=== PATIENT | female | born 1990 | race African-American/Black ===

== ENCOUNTER 2016-09-06 04:16 | Emergency (ER) | payer OTHER ==
[~2016-09-06] VITALS: Ht 172.7 cm; Wt 56.7 kg
[~2016-09-06 04:16] MED LIST: ALLEGRA-D 12 H1 EACH PO; BACTRIM DS TAB1 EACH PO; BIRTH CONTROL; CIPRO; CIPROFLOXACIN500 M1 PO; CYCLOBENZAPRINE; DEPO-PROVERA; FLAGYL500 MG PO; GENTAK5 ML OP; IRON325 PO; LORAZEPAM 1 MG T1 M1 PO; MIRALAX255 GM PO; MONONESSA1 EACH PO; NAPHCON-A EYE D15 ML OP; NOHOMEMEDICATIONS; NORCO 5-325 TA1 EACH PO; PENICILLIN VK500 M1 PO; PHENERGAN 25 MG25 M1 PO; PRENATAL; PRENATAL PO; PYRIDIUM200 MG PO; SEROQUEL 50 MG50 MG PO; SEROQUEL XR 30300 M1 PO; TESSALON PERLE100 MG PO; ULTRAM 50MG TAB50 MG PO; VENTOLIN HFA 1818 GM INH; VERAPAMIL ER180 M1 PO; VISINE15 ML OP; ZANTAC 150MG T150 M1 PO; ZOFRAN ODT4 MG PO; ZPAK PO
[2016-09-06 04:18] VITALS: BP 128/82
[2016-09-06 04:39] LABS: URINE BILIRUBIN NEGATIVE (Negative); URINE BLOOD NEGATIVE (Negative); URINE COLOR YELLOW; URINE GLUCOSE-RANDOM* NEGATIVE (Negative); URINE KETONES NEGATIVE (Negative); URINE LEUKOCYTES-REFLEX 1+ (Negative); URINE PROTEIN (DIPSTICK) NEGATIVE (Negative); URINE SPECIFIC GRAVITY <= 1.005 (1.003-1.035); URINE UROBILINOGEN 0.2 E.U./dl (0.2-1.0)
[2016-09-06 04:59] LABS: SQUAMOUS 4-10 Moderate /LPF (0-3)
[2016-09-06 05:00] LABS: CASTS None Seen /LPF (None Seen); CRYSTALS None Seen /LPF (None Seen); URINE RBC 0-2 Rare /HPF (0-2); URINE WBC-REFLEX 0-5 Rare /HPF (0-5)
[2016-09-06] MEDS ORDERED: CYCLOBENZAPRINE5 MG PO (05:11)
[2016-09-06] MEDS ORDERED: HYDROCODONE-AP1 EAC6 PO (05:11)
[2016-10-15] MEDS ORDERED: AMOXICILLIN 50500 M1 PO (03:05)
== END 2016-09-06 05:15 | disposition home or self-care (01) ==
LOC: ER 04:16
PROVIDERS: Emergency Medicine
DX: S29.012A Strain of muscle and tendon of back wall of thorax, initial encounter (principal); F17.210 Nicotine dependence, cigarettes, uncomplicated; F41.9 Anxiety disorder, unspecified; Z88.5 Allergy status to narcotic agent; Z88.6 Allergy status to analgesic agent; X58.XXXA Exposure to other specified factors, initial encounter; Y93.89 Activity, other specified; Y92.89 Other specified places as the place of occurrence of the external cause; Y99.9 Unspecified external cause status

== ENCOUNTER 2016-09-11 19:42 | Emergency (ER) | payer OTHER ==
[~2016-09-11] VITALS: Ht 170.2 cm; Wt 57.1 kg
[~2016-09-11 19:42] MED LIST changes: +CYCLOBENZAPRINE5 MG PO; +HYDROCODONE-AP1 EAC6 PO
[2016-09-11 20:16] LABS: URINE BILIRUBIN NEGATIVE (Negative); URINE BLOOD NEGATIVE (Negative); URINE COLOR YELLOW; URINE GLUCOSE-RANDOM* NEGATIVE (Negative); URINE KETONES NEGATIVE (Negative); URINE LEUKOCYTES-REFLEX NEGATIVE (Negative); URINE PROTEIN (DIPSTICK) TRACE (Negative); URINE SPECIFIC GRAVITY 1.025 (1.003-1.035)
[2016-09-11 20:37] LABS: ABSOLUTE NEUTROPHILS 4.2 thou/uL (1.4-8.2); BASOPHILS 0.6 % (0.0-2.0); EOSINOPHILS 0.4 % (0.0-3.0); HEMATOCRIT 35.7 % (37.0-47.0); HEMOGLOBIN 11.9 gm/dL (12.0-15.0); LYMPHOCYTES 39.9 % (24.0-44.0); MCH 34.8 pg (26.0-34.0); MCHC 33.2 % (28.0-37.0); MCV 104.8 fL (80.0-100.0); MONOCYTES 9.2 % (1.0-8.0); PLATELET COUNT 255 thou/uL (150-400); POLYS 49.9 % (36.0-66.0); RBC 3.41 mil/uL (4.20-5.00); RDW 13.6 % (10.5-14.5); WBC 8.4 thou/uL (4.0-11.0)
[2016-09-11 20:39] LABS: MANUAL DIFF NO
[2016-09-11 20:43] LABS: CALCIUM 8.6 mg/dL (8.5-10.1); POTASSIUM 3.8 mmol/L (3.5-5.1)
[2016-09-11 20:49] LABS: ALBUMIN 3.7 g/dL (3.4-5.0); TOTAL BILIRUBIN 0.3 mg/dL (<0.1-1.0); TOTAL PROTEIN 7.4 g/dL (6.4-8.2)
[2016-09-11] MEDS ORDERED: FLAGYL500 MG PO (21:35)
[2016-09-11] MEDS ORDERED: DOXYCYCLINE 10100 MG PO (21:35)
[2016-09-11] MEDS ORDERED: ACETAMINOPHEN-1 EAC1 PO (21:35)
[2016-09-11 21:42] VITALS: BP 109/37
[2016-09-14 14:12] LABS: CHLAMYDIA TRACHOMATIS-PCR Negative (Negative); NEISSERIA GONORRHEA-PCR Negative (Negative)
[2016-10-15] MEDS ORDERED: AMOXICILLIN 50500 M1 PO (03:05)
== END 2016-09-11 21:48 | disposition home or self-care (01) ==
LOC: ER 19:42
PROVIDERS: Emergency Medicine
DX: N73.8 Other specified female pelvic inflammatory diseases (principal); N76.0 Acute vaginitis; D53.9 Nutritional anemia, unspecified; F17.210 Nicotine dependence, cigarettes, uncomplicated; F41.9 Anxiety disorder, unspecified; Z88.6 Allergy status to analgesic agent

== ENCOUNTER 2016-12-31 01:58 | Emergency (ER) | payer OTHER ==
[~2016-12-31] VITALS: Ht 170.2 cm; Wt 54.4 kg
[~2016-12-31 01:58] MED LIST changes: +ACETAMINOPHEN-1 EAC1 PO; +AMOXICILLIN 50500 M1 PO; +DOXYCYCLINE 10100 MG PO
[2016-12-31 02:01] VITALS: BP 130/78
[2016-12-31] MEDS ORDERED: AMOXICILLIN875 MG PO (02:56)
[2016-12-31] MEDS ORDERED: NORCO 5-325 TA1 EACH PO (02:56)
== END 2016-12-31 03:00 | disposition home or self-care (01) ==
LOC: ER 01:58
DX: J02.9 Acute pharyngitis, unspecified (principal); F41.9 Anxiety disorder, unspecified; Z88.6 Allergy status to analgesic agent; Z88.8 Allergy status to other drugs, medicaments and biological substances; F17.210 Nicotine dependence, cigarettes, uncomplicated; F10.99 Alcohol use, unspecified with unspecified alcohol-induced disorder

== ENCOUNTER 2017-01-20 01:02 | Emergency (ER) | payer OTHER ==
[~2017-01-20] VITALS: Ht 170.2 cm; Wt 53.5 kg
[~2017-01-20 01:02] MED LIST changes: +AMOXICILLIN875 MG PO
[2017-01-20 01:17] LABS: URINE BILIRUBIN NEGATIVE (Negative); URINE BLOOD 3+ (Negative); URINE COLOR YELLOW; URINE GLUCOSE-RANDOM* NEGATIVE (Negative); URINE KETONES NEGATIVE (Negative); URINE NITRITE POSITIVE (Negative); URINE PROTEIN (DIPSTICK) 2+ (Negative); URINE UROBILINOGEN 0.2 E.U./dl (0.2-1.0)
[2017-01-20 01:20] VITALS: BP 121/68
[2017-01-20] MEDS ORDERED: MACROBID 100 M100 M1 PO (01:26)
[2017-01-20] MEDS ORDERED: PYRIDIUM200 MG PO (01:26)
[2017-01-20 01:41] LABS: CASTS None Seen /LPF (None Seen); CRYSTALS None Seen /LPF (None Seen); SQUAMOUS 0-3 Few /LPF (0-3); URINE WBC >25 Many /HPF (0-5)
== END 2017-01-20 01:44 | disposition home or self-care (01) ==
LOC: ER 01:02
PROVIDERS: Emergency Medicine
DX: N39.0 Urinary tract infection, site not specified (principal); F41.9 Anxiety disorder, unspecified; F17.210 Nicotine dependence, cigarettes, uncomplicated; Z88.6 Allergy status to analgesic agent

== ENCOUNTER 2017-05-11 14:14 | Emergency (ER) | payer OTHER ==
[~2017-05-11] VITALS: Ht 170.2 cm; Wt 52.2 kg
[~2017-05-11 14:14] MED LIST changes: +MACROBID 100 M100 M1 PO
[2017-05-11 14:45] LABS: HEMATOCRIT 43.3 % (37.0-47.0); HEMOGLOBIN 14.5 gm/dL (12.0-15.0); MCH 34.4 pg (26.0-34.0); MCHC 33.6 g/dL (28.0-37.0); MCV 102.5 fL (80.0-100.0); RBC 4.22 mil/uL (4.20-5.00); RDW 13.7 % (10.5-14.5); WBC 8.6 thou/uL (4.0-11.0)
[2017-05-11 14:56] LABS: ANION GAP 7 mmol/L (7-16); BUN 17 mg/dL (7-18); CALCIUM 9.7 mg/dL (8.5-10.1); CHLORIDE 106 mmol/L (98-107); CO2 31 mmol/L (21-32); CREATININE 1.1 mg/dL (0.6-1.0); GLUCOSE 97 mg/dL (74-106); POTASSIUM 4.4 mmol/L (3.5-5.1); SODIUM 144 mmol/L (136-145)
[2017-05-11 14:57] LABS: AMP/METHAMP Negative (Negative); BARBITURATES Negative (Negative); BENZODIAZEPINES POSITIVE (Negative); COCAINE POSITIVE (Negative); METHADONE Negative (Negative); OPIATES POSITIVE (Negative); PCP POSITIVE (Negative); THC Negative (Negative)
[2017-05-11 15:01] LABS: ACETAMINOPHEN < 2 ug/mL (10-30); SALICYLATE 3.7 mg/dL (2.8-20.0)
[2017-05-11 18:31] VITALS: BP 99/55
== END 2017-05-11 20:30 ==
LOC: ER 14:14
PROVIDERS: Emergency Medicine
DX: R45.851 Suicidal ideations (principal); F19.10 Other psychoactive substance abuse, uncomplicated; F41.9 Anxiety disorder, unspecified; F10.99 Alcohol use, unspecified with unspecified alcohol-induced disorder; F17.210 Nicotine dependence, cigarettes, uncomplicated; Z88.6 Allergy status to analgesic agent